=== PATIENT | male | born 2005 | race Caucasian/White ===

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

== ENCOUNTER → 2023-02-16 07:59 | Outpatient (BNVA) | payer BC, MEDICAID, SELFPAY | PROVIDERS: PCP Electrodiagnostic Medicine; Referring Provider Dermatology; Visit Provider Student in an Organized Health Care Education/Training Program | DX: M25.561 Pain in right knee (principal); M25.562 Pain in left knee; M22.2X9 Patellofemoral disorders, unspecified knee | CPT/HCPCS: 73560; 73565 ==

== ENCOUNTER 2023-02-16 10:26 | Outpatient (CLI) | payer BC, MEDICAID, SELFPAY | END 2023-02-16 10:27 | disposition home or self-care (01) | LOC: SPT 10:27 | PROVIDERS: PCP Electrodiagnostic Medicine; Visit Provider Student in an Organized Health Care Education/Training Program | DX: Z46.89 Encounter for fitting and adjustment of other specified devices (principal); M25.561 Pain in right knee | CPT/HCPCS: 97760; L1812 ==

== ENCOUNTER → 2023-03-20 15:14 | Outpatient (BNVA) | payer BC, MEDICAID, SELFPAY | PROVIDERS: PCP Electrodiagnostic Medicine; Visit Provider Nurse Practitioner | DX: R05.9 Cough, unspecified (principal); J40 Bronchitis, not specified as acute or chronic | CPT/HCPCS: 71046; 80053; 85025 ==

== ENCOUNTER → 2024-01-25 08:01 | Outpatient (BNVA) | payer BC, SELFPAY | PROVIDERS: PCP Electrodiagnostic Medicine; Visit Provider Physician Assistant | DX: M25.561 Pain in right knee (principal); M25.562 Pain in left knee | CPT/HCPCS: 73560; 73565 ==

== ENCOUNTER 2024-02-19 07:03 | Outpatient (CLI) | payer BC, MEDICAID, SELFPAY ==
--- NOTE | 2024-02-19 08:00 | MR_ITS ---
WS: [id number] MRI RIGHT KNEE NONCONTRAST TECHNIQUE: Axial PD, coronal PD fat sat, coronal PD, sagittal PD, and sagittal PD fat-sat images obta ined. CLINICAL INFORMATION: right knee medial meniscus derangment. COMPARISON: None. FINDINGS: Distal quadriceps and patella tendons are intact. Hypertrophic patella. ACL and PCL appear intact. La teral subluxation of the patella. Recommend correlation for patellar instability. Medial and lateral patellar retinaculum appear intact. Mild chondromalacia patella. Normal medial and lateral meniscus. No acute appearing meniscal tears. Normal medial and lateral celine ateral ligaments. MR/MR knee RT wo con* [id number] IMPRESSION: 1. Lateral subluxation of the patella., Recommend correlation for patellar ins tability. Somewhat shallow appearing trochlear groove. 2. Mild chondromalacia patella. 3. ACL and PCL appear intact. 4. No acute appearing meniscal tears. 5. No other acute findings. Outbridge grading: grade II: blister-like swelling/fraying of articular cartila ge extending to surface
== END 2024-02-19 07:04 | disposition home or self-care (01) ==
LOC: RAD 07:03
PROVIDERS: PCP Nurse Practitioner; Visit Provider Physician Assistant
DX: S83.001A Unspecified subluxation of right patella, initial encounter (principal); M25.561 Pain in right knee; M79.4 Hypertrophy of (infrapatellar) fat pad; X58.XXXA Exposure to other specified factors, initial encounter
CPT/HCPCS: 73721

== ENCOUNTER 2024-03-07 15:36 | Outpatient (CLI) | payer BC, SELFPAY | END 2024-03-07 15:37 | disposition home or self-care (01) | LOC: SPT 15:38 | PROVIDERS: Visit Provider Student in an Organized Health Care Education/Training Program | DX: Z46.89 Encounter for fitting and adjustment of other specified devices (principal); M23.304 Other meniscus derangements, unspecified medial meniscus, left knee | CPT/HCPCS: L1812 ==

== ENCOUNTER → 2024-03-25 15:49 | Outpatient (BNVA) | payer BC, SELFPAY | PROVIDERS: PCP Nurse Practitioner; Visit Provider Nurse Practitioner | DX: L70.0 Acne vulgaris (principal); J30.2 Other seasonal allergic rhinitis; F33.42 Major depressive disorder, recurrent, in full remission; E55.9 Vitamin D deficiency, unspecified; M79.10 Myalgia, unspecified site | CPT/HCPCS: 80053; 82306; 84443; 85025 ==

== ENCOUNTER → 2024-07-16 13:51 | Outpatient (BNVA) | payer BC, SELFPAY | PROVIDERS: PCP Nurse Practitioner; Visit Provider Orthopaedic Surgery | DX: M54.50 Low back pain, unspecified (principal) | CPT/HCPCS: 72110 ==

== ENCOUNTER → 2025-03-05 10:27 | Outpatient (BNVA) | payer BC, MEDICAID, SELFPAY | PROVIDERS: PCP Nurse Practitioner; Visit Provider Physician Assistant | DX: M25.561 Pain in right knee (principal); M25.562 Pain in left knee; Z46.89 Encounter for fitting and adjustment of other specified devices | CPT/HCPCS: 73560; 73565 ==

== ENCOUNTER 2025-03-10 14:20 | Outpatient (CLI) | payer BC, MEDICAID, SELFPAY ==
[2025-03-10 15:01] LABS: Hematocrit 44.2 % (37-53); Hemoglobin 14.10 g/dL (11.27-16.99); Mean Corpuscular HGB Conc 31.9 g/dL (30-55); Mean Corpuscular Hemoglobin 25.4 pg (27-33); Mean Corpuscular Volume 79.6 fl (82-101); Nucleated Red Blood Cells % 0 %; Platelet Count 392 10^3/cmm (157-399); Red Blood Count 5.55 10^6/uL (3.85-5.65); White Blood Count 14.58 10^3/uL (3.29-11.43)
[2025-03-10 15:29] LABS: Alanine Aminotransferase 17 U/L (0-41); Albumin Level 4.4 g/dL (3.5-5.2); Alkaline Phosphatase 142 U/L (40-130); Anion Gap 16.2 (5-19); Aspartate Amino Transferase 14 U/L (0-40); Blood Urea Nitrogen 9 mg/dL (6-20); Calcium 9.2 mg/dL (8.5-10.5); Carbon Dioxide 26 mmol/L (22-29); Chloride 98 mmol/L (98-107); Globulin 3.4 g/dL (1.3-4.6); Glucose 176 mg/dL (65-115); Osmolality Calculated 285 mOsm/kg (285-295); Potassium 4.2 mmol/L (3.5-5.1); Sodium 136 mmol/L (136-145); Total Protein 7.8 g/dL (6.6-8.7); Uric Acid 4.7 mg/dL (3.4-7.0)
[2025-03-11 04:50] LABS: Anti-Double Strand DNA AB <1 IU/mL; SM/RNP Antibodies <1.0 NEG AI (<1.0 NEG); SS-B/LA IGG <1.0 NEG AI (<1.0 NEG); Scleroderma Ab(Scl-70) Ab <1.0 NEG AI (<1.0 NEG); Ss-A/Ro Igg <1.0 NEG AI (<1.0 NEG)
== END 2025-03-10 14:21 | disposition home or self-care (01) ==
LOC: LAB 14:21
PROVIDERS: PCP Nurse Practitioner; Visit Provider Physician Assistant
DX: M06.4 Inflammatory polyarthropathy (principal)
CPT/HCPCS: 36415; 80053; 84550; 85025; 85651; 86140; 86200; 86225; 86235; 86431